=== PATIENT | female | born 1955 | race Caucasian/White ===

== ENCOUNTER 2019-01-25 08:34 | Emergency (ER) | payer MEDICARE ==
[2019-01-25] MEDS ORDERED: LIDOCAINE HCL 1% 20 ML VIAL ONE (09:40)
== END 2019-01-25 10:40 | disposition home or self-care (01) ==
LOC: EDH 08:34
DX: S90.211A Contusion of right great toe with damage to nail, initial encounter (principal); B35.1 Tinea unguium; I10 Essential (primary) hypertension; Z87.891 Personal history of nicotine dependence; Z88.0 Allergy status to penicillin; Z88.5 Allergy status to narcotic agent; W22.8XXA Striking against or struck by other objects, initial encounter; Y93.89 Activity, other specified; Y92.009 Unspecified place in unspecified non-institutional (private) residence as the place of occurrence of the external cause; Y99.8 Other external cause status
CPT/HCPCS: 11760; 73660

== ENCOUNTER 2024-01-20 15:14 | Emergency (ER) | payer MEDICARE ==
[~2024-01-20] VITALS: Ht 154.9 cm; Wt 86.2 kg
[2024-01-20 15:56] LABS: BASOPHILS # (AUTO) 0.15 K/uL (0.00-0.20); BASOPHILS % (AUTO) 1.2 % (0.0-5.0); EOSINOPHILS # (AUTO) 0.59 K/uL (0.00-0.70); EOSINOPHILS % (AUTO) 4.7 % (0.0-8.0); HEMATOCRIT 45.2 % (36-48); IMMATURE GRANULOCYTE ABSOLUTE 0.06 K/uL (0-1); LYMPHOCYTES # (AUTO) 3.3 K/uL (1.0-4.8); MEAN CORPUSCULAR HEMOGLOBIN 28.8 pg (27.0-33.0); MEAN CORPUSCULAR HGB CONC 32.7 g/dL (32.0-36.0); MEAN CORPUSCULAR VOLUME 88.1 fL (79-99); MONOCYTES # (AUTO) 1.1 K/uL (0.1-1.0); MONOCYTES % (AUTO) 8.8 % (3.0-13.0); NEUTROPHILS # (AUTO) 7.4 K/uL (1.8-7.7); NEUTROPHILS % (AUTO) 58.8 % (40.0-77.0); PLATELET COUNT (AUTO) 413 K/uL (130-400); RED BLOOD CELL COUNT(AUTO) 5.13 MIL/uL (4.00-5.50); RED CELL DISTRIBUTION WIDTH 13.9 % (11.0-15.5); WHITE BLOOD COUNT (AUTO) 12.6 K/uL (4.8-10.8)
[2024-01-20 16:08] LABS: CREATININE 0.7 mg/dL (0.5-1.0); POTASSIUM 3.6 mmol/L (3.5-5.1)
[2024-01-20 16:10] LABS: INR <= 0.93 (0.85-1.15); PROTHROMBIN TIME 10.4 SEC (9.6-11.6)
[2024-01-20 16:12] LABS: PARTIAL THROMBOPLASTIN TIME 26.2 SEC (26.3-35.5)
[2024-01-20 16:19] LABS: ALBUMIN 3.5 g/dL (3.5-5.0); BILIRUBIN,TOTAL 0.4 mg/dL (0.2-1.0); TOTAL PROTEIN, SERUM 7.6 g/dL (6.0-8.3)
[2024-01-20 16:26] LABS: B-TYPE NATRIURETIC PEPTIDE 20 pg/mL (0-100)
[2024-01-20] MEDS ORDERED: IOHEXOL-350 75 ML VIAL IV ONE (16:38)
[2024-01-20 17:03] LABS: APPEARANCE,URINE CLEAR (CLEAR); BILIRUBIN,URINE NEGATIVE (NEGATIVE); COLOR,URINE LIGHT-YELLOW (YELLOW); GLUCOSE, URINE (UA) NEGATIVE (NEGATIVE); KETONES,URINE NEGATIVE (NEGATIVE); LEUKOCYTE ESTERASE ,URINE NEGATIVE Leu/uL (NEGATIVE); NITRATE,URINE NEGATIVE (NEGATIVE); OCCULT BLOOD,URINE NEGATIVE (NEGATIVE); PH,URINE 5.5 (5.0-8.0); PROTEIN,URINE NEGATIVE (NEGATIVE); UROBILINOGEN,URINE 0.2 mg/dL (0.2-1.0)
[2024-01-20 17:05] LABS: ADD UA MICROSCOPIC NO
[2024-01-20] MEDS ORDERED: CLOP-31 PO (17:32)
[2024-01-20] MEDS ORDERED: ASPI-1005 PO (17:32)
[2024-01-20] MEDS: CLOPIDOGREL 300MG TAB PO ONE (17:33)
[2024-01-20] MEDS: ASPIRIN 325MG TAB PO ONE (17:33)
[2024-01-20 17:42] VITALS: BP 149/54; PULSE 67; RESP 18; O2SAT 98
== END 2024-01-20 18:07 | disposition home or self-care (01) ==
LOC: EDH 15:14
DX: G45.9 Transient cerebral ischemic attack, unspecified (principal); Z98.890 Other specified postprocedural states
CPT/HCPCS: 99285; 70496; 82550; 83721; 84484; 80053; 83880; 85025; 85610; 85730; 82948; 81003; 36415; 70498; 93005; 70450; Q9967